=== PATIENT | female | born 1955 | race Two or more races ===

== ENCOUNTER 2019-06-22 06:57 | Day surgery (SDC) | payer OTHER ==
[~2019-06-22] VITALS: Ht 160 cm; Wt 86.7 kg
[~2019-06-22 06:57] MED LIST: ACET325T40 PO; ATEN-51 PO; CEPH500C PO; ENAL20TA PO; NIFE30TA43 PO; [UNRECOGNIZED DRUG - OTHER]; folic acid; ibuprofen; ranitidine; vit b12
[2019-06-22 08:00] VITALS: Ht 160 cm; Wt 86.7 kg
[2019-06-22 08:17] VITALS: BP 160/72; PULSE 53; RESP 16
[2019-06-22] MEDS ORDERED: MIDAZOLAM 1 MG/ML 2 ML INJ ONE ×2 (09:27)
[2019-06-22] MEDS ORDERED: FENTAnyl 50 MCG/ML VIAL ONE (09:27)
[2019-06-22 09:40] VITALS: BP 133/86; PULSE 49; RESP 17
== END 2019-06-22 13:03 | disposition home or self-care (01) ==
LOC: GIL 06:57
PROVIDERS: ATTEND Internal Medicine Gastroenterology
DX: Z12.11 Encounter for screening for malignant neoplasm of colon (principal); D12.2 Benign neoplasm of ascending colon; D12.4 Benign neoplasm of descending colon; K57.30 Diverticulosis of large intestine without perforation or abscess without bleeding; K64.4 Residual hemorrhoidal skin tags; I10 Essential (primary) hypertension
CPT/HCPCS: 45380; 45385; 88305; J2250; J3010; Z7610